=== PATIENT | female | born 2005 | race Caucasian/White ===

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

== ENCOUNTER 2023-09-07 00:51 | Emergency (ER) | payer MEDICAID ==
[~2023-09-07] VITALS: Ht 167.6 cm; Wt 113.4 kg
[~2023-09-07 00:51] MED LIST: IBUP-1969 PO; SOM350 PO
[2023-09-07 01:35] VITALS: BP_SYST 117; PULSE 87; RESP 18; TEMP 97.2; O2SAT 97
[2023-09-07] MEDS ORDERED: CEPH-548 PO (01:57)
[2023-09-07] MEDS ORDERED: LIDOCAINE 1% 10 MG/ML, 20 ML MDV INJ ONE (02:00)
== END 2023-09-07 02:16 | disposition home or self-care (01) ==
LOC: SED 00:51
DX: L03.011 Cellulitis of right finger (principal); Z79.899 Other long term (current) drug therapy
CPT/HCPCS: 99283

== ENCOUNTER 2023-09-24 19:11 | Emergency (ER) | payer MEDICAID ==
[~2023-09-24 19:11] MED LIST changes: +CEPH-548 PO
== END 2023-09-24 21:30 | disposition left against medical advice (07) ==
LOC: SED 19:11
DX: O26.893 Other specified pregnancy related conditions, third trimester (principal); Z53.21 Procedure and treatment not carried out due to patient leaving prior to being seen by health care provider; Z3A.32 32 weeks gestation of pregnancy